=== PATIENT | male | born 1975 | race Caucasian/White ===

== ENCOUNTER 2016-12-21 11:06 | Outpatient (CLI) | payer OTHER ==
[~2016-12-21] VITALS: Ht 175.3 cm; Wt 93.2 kg
[2016-12-21 11:10] VITALS: BP 141/78; PULSE 94; RESP 18; Ht 175.3 cm; Wt 93.2 kg
--- NOTE | 2016-12-21 11:52 | PN ---
Date/Time of Note Date/Time of Note DATE: 12/21/16 TIME: 11:44 Assessment/Plan Assessment/Plan Assessment/Plan [facility] Progress Note Date of Service: 12/21/16 Today's Impression & Plan: Stable and doing well without any more issues with abdominal pain after discharge from [facility]. No indication for acute surgical intervention to a cholecystectomy. I strongly recommended that the patient follows up with a dedicated primary care physician for long-term care of his diabetes and other medical issues. We also discussed lifestyle changes to include more education and intervention in terms of choice of food as well as consistent exercise with the goal of bringing the BMI to below 25. Answered all questions. With above assessment, I recommended the followin. Follow-up with primary care physician 2. Follow with us as needed Thank you very much for allowing us to participate in the care of this very nice patient and wonderful family. If there are any questions, please feel free to contact me at . Total visit time: 20 minutes, of which more than half was spent in [id number] discussion with the patient, possibly including time to discuss issues with family, as well as coordination of care with multiple other physicians and providers. Please note: Spelling or grammatical errors in this note are likely due to EHR/ dictation systems and are not reflective of patient care quality. Also please note that the dictation timestamp of this note does not necessarily reflected time of the visit for this service. Updated Clinical Summary: A very pleasant, 41-year-old gentleman with multiple comorbid issues including BMI 29.5, as well as less likely new onset diabetes mellitus which has been uncontrolled, presenting with right upper quadrant abdominal pain which on ultrasound was thought to be perhaps due to acalculous cholecystitis, and CT scan and MRI showed possible slight inflammation of the wall of the gallbladder , but no other major findings. DC home 11/26/2016. COMORBIDITIES: 1. BMI 29.6. 2. Hyperlipidemia. 3. Uncontrolled diabetes mellitus with hemoglobin A1c of 11. 4. Acute hyponatremia. 5. Benign essential hypertension. 6. Slight common bile duct dilatation without any evidence of choledocholithiasis or mass. 7. History of psoriasis. Subjective: No major events or complaints since discharge from the hospital. No major pain complaints and not on any pain medications. No N/V, SOB or CP. + bowel activity ; tolerating a regular diet Objective: Vitals: reviewed; please also see EHR Physical Exam: Lungs: breathing comfortably without tachypnea; no audible wheezes, rales or rhonchi on gross exam Abd: Soft, non-tender, and non-distended; no peritoneal signs or guarding Skin: Appears pink and feels warm to touch. Neuro: Awake, alert and follows commands appropriately Exam/Review of Systems Vital Signs Vitals Vital Signs Date Time Temp Pulse Resp B/P Pulse Ox O2 Delivery O2 Flow Rate FiO2 12/21/16 11:10 98.7 94 18 141/78 90 Room Air LONNY LEVIN M.D. Dec 21, 2016 11:51
== END 2016-12-21 16:22 | disposition home or self-care (01) ==
LOC: HPC 11:06
PROVIDERS: ATTEND Transplant Surgery
DX: R10.11 Right upper quadrant pain (principal); E78.5 Hyperlipidemia, unspecified; E11.9 Type 2 diabetes mellitus without complications; I10 Essential (primary) hypertension
CPT/HCPCS: G0463